=== PATIENT | male | born 1950 | race Caucasian/White ===

== ENCOUNTER 2018-11-27 20:48 | Emergency (ER) | payer SELFPAY ==
[2018-11-27 20:49] VITALS: BP 171/115
--- NOTE | 2018-11-27 20:51 | ER Report ---
History and Physical Time Seen By MD: 20:48 HPI/ROS CHIEF COMPLAINT: Skilled Nursing clearance HISTORY OF PRESENT ILLNESS: 68-year-old male brought in by police for alf clearance. Patient appears with slurred speech consistent with alcohol intoxication. Patient voices no complaints. Patient denies past medical history. REVIEW OF SYSTEMS: Respiratory: No cough, no dyspnea. Cardiovascular: No chest pain, no palpitations. Gastrointestinal: No vomiting, no abdominal pain. Musculoskeletal: No back pain. Home Meds Unable to Obtain Active Prescriptions or Reported Meds Constitutional Vital Sign - Last 24 Hours 11/27/18 20:49 Pulse 92 Resp 16 B/P (MAP) 171/115 Pulse Ox 93 O2 Delivery Room Air Physical Exam Vital signs stable, afebrile, pulse ox normal, slurred speech consistent with alcohol intoxication, heavy odor of EtOH on breath General Appearance: The patient is alert, has no immediate need for airway protection and no current signs of toxicity. Palpation of the head and neck reveal no tenderness or trauma HEENT: Pupils equal and round no injection. Oropharynx without dental trauma Respiratory: Chest is non tender, lungs are clear to auscultation. No chest wall tenderness Cardiac: regular rate and rhythm Gastrointestinal: Abdomen is soft and non tender, no masses, bowel sounds normal. Musculoskeletal: Neck: Neck is supple and non tender. Extremities have full range of motion and are non tender. No evidence of trauma Skin: No rashes or lesions. DIFFERENTIAL DIAGNOSIS: After history and physical exam differential diagnosis was considered for alf clearance, polysubstance abuse, alcohol intoxication Medical Decision Making ED Course/Re-evaluation ED Course Patient was minute to an examination room. H&P was done. The differential diagnoses was considered. On clinical examination. Patient has stable vital signs. There are no findings on clinical examination. Patient voices no complaints. He is medical cleared for alf admission. Decision to Disposition Date: November 27, 2018 Decision to Disposition Time: 20:55 Depart Departure Latest Vital Signs Vital Signs Date Time Temp Pulse Resp B/P (MAP) Pulse Ox O2 Delivery O2 Flow Rate FiO2 11/27/18 20:49 92 16 171/115 93 Room Air Impression: Primary Impression: Alcohol intoxication Additional Impression: Medical clearance for incarceration Condition: Improved Disposition: [facility] TO CUSTODIAL/CORRECTIONAL F New Scripts Unable to Obtain Active Prescriptions or Reported Meds Patient Instructions: Alcohol Intoxication (ED) Additional Instructions: Patient's medically cleared for alf admission. Problem Qualifiers Primary Impression: Alcohol intoxication Complication of substance-induced condition: uncomplicated Qualified Codes: F10.920 - Alcohol use, unspecified with intoxication, uncomplicated SORAIDA MERCHANT DO November 27, 2018 20:51
== END 2018-11-27 20:56 ==
LOC: ER 20:51
DX: F10.920 Alcohol use, unspecified with intoxication, uncomplicated (principal)
CPT/HCPCS: 99281